=== PATIENT | female | born 1985 | race Caucasian/White ===

== ENCOUNTER 2018-02-02 22:00 | Emergency (ER) | payer SELFPAY ==
[2018-02-02 23:16] LABS: ABS Basophils 0 10^3/ul (0-0.2); ABS Eosinophils 0.1 10^3/ul (0-0.6); ABS Lymphocytes 2.1 10^3/ul (1.0-4.8); ABS Monocytes 0.4 10^3/ul (0-0.8); ABS Neutrophils 3.4 10^3/ul (1.5-7.7); ABS Nucleated RBC 0 10^3/ul; Eosinophil % 1.1 % (0-6); Hematocrit 36 % (35-47); Hemoglobin 12.1 g/dl (12.0-16.0); Lymphocyte % 34.1 % (25-47); Mean Corpuscular HGB Conc 34 g/dl (31-36); Mean Corpuscular Hemoglobin 30 pg (27-31); Mean Corpuscular Volume 89 fL (80-97); Mean Platelet Volume 7.5 um3 (7.4-10.4); Nucleated Red Blood Cells % 0; Platelet Count 223 10^3/ul (150-450); Red Blood Count 4.06 10^6/ul (4.00-5.40); Red Cell Distribution Width 13 % (10.5-15)
[2018-02-02 23:34] LABS: EGFR Non-African American 83.8 (>60)
[2018-02-03 00:57] LABS: Urine Appearance Cloudy; Urine Blood 3+ (Negative); Urine Color Straw; Urine Ketones Negative (Negative); Urine Protein Negative (Negative); Urine Red Blood Cell 3+(>10/hpf) (Absent); Urine Specific Gravity 1.005 (1.010-1.030); Urine Urobilinogen Negative (Negative); Urine White Blood Cell Trace(0-5/hpf) (Absent)
[2018-02-03 02:03] VITALS: BP 108/60
--- NOTE | 2018-02-03 07:41 | RAD ---
HISTORY: vaginal bleeding COMPARISONS: None TECHNIQUE: Multiple transverse and longitudinal ultrasound images were obtained of the pelvis using grayscale, color Doppler, and M-Mode Doppler imaging using the endovaginal transducer. FINDINGS: UTERUS: The uterus is normal in shape, size, contour, and echotexture. GESTATION: There is a single live intrauterine gestation. The crown-rump length measures 0.57 cm for a gestational age of 6 weeks, 3 days. The LORENA is September 26, 2018. cardiac motion is detected at a rate of 107 beats per minute. Gross movement is not identified. anatomy cannot be assessed secondary to early dates. The amniotic fluid is qualitatively normal. There are no retroplacental fluid collections. CUL-DE-SAC: There is no free fluid within the cul-de-sac. RIGHT OVARY: The right ovary measures 2.3 x 2 x 1.6 cm. LEFT OVARY: The left ovary measures 3.4 x 2 x 2.9 cm. There is a complex cyst of the left ovary measuring 2.2 cm in size, likely a corpus luteum. BLADDER: The bladder is not well visualized. IMPRESSION: 1. SINGLE LIVE INTRAUTERINE GESTATION AT 6 WEEKS, 3 DAYS BY CROWN-RUMP LENGTH. 2. PROBABLE CORPUS LUTEUM OF THE LEFT OVARY. RECOMMEND ATTENTION ON FOLLOW-UP IMAGING.
--- NOTE | 2018-02-20 10:48 | ED ---
Jair Hall Natalie, scribed for Peterson Joseph MD on 02/02/18 at 2305 . - HPI Summary HPI Summary: The patient is a 32 y/o F presenting to the ED c/o vaginal bleeding without pain starting an hour [employer]. The bleeding is described as bright red spotting. She states she is approximately 7 weeks with her LNMP on 11/27/17, although her has not yet been confirmed by US. She denies abd pain, burning, and dysuria. This is her first , . She has reported this episode to her STENCILER, who told her to come to the ED. - History of Current Complaint Chief Complaint: EDVaginalBleeding Stated Complaint: 7WKS /BLEEDING Time Seen by Provider: 02/02/18 22:39 Hx Obtained From: Patient Chief Complaint: Vaginal Bleeding Onset/Duration: Started Hours Ago, Still Present Severity: Mild Current Severity: Mild Pain Intensity: 0 Location of Pain: None Character: None Aggravating Factors: Nothing Alleviating Factors: Nothing Associated Signs and Symptoms: Positive: Negative - abd pain, Vaginal Bleeding or Discharge. Negative: Urinary Symptoms - Allergies/Home Medications Allergies/Adverse Reactions: Allergies Allergy/AdvReac Type Severity Reaction Status Date / Time No Known Allergies Allergy Verified 02/02/18 22:07 PMH/Surg Hx/FS Hx/Imm Hx Endocrine/Hematology History: Denies: Hx Diabetes Cardiovascular History: Denies: Hx Hypertension Infectious Disease History: No Infectious Disease History: Denies: Traveled Outside the [place] in Last 30 Days - Family History Known Family History: Negative: Cardiac Disease, Hypertension Review of Systems Negative: Abdominal Pain Genitourinary: Other - vaginal spotting with bright red blood Negative: burning, dysuria All Other Systems Reviewed And Are Negative: Yes Physical Exam - Summary Physical Exam Summary: Appearance: Well-appearing, no distress, Well-nourished Skin: Warm, color reflects adequate perfusion Head: Normal Head/Face inspection Eyes: Conjunctiva clear ENT: Normal inspection Neck: Supple, no nodes, no JVD. Respiratory: Lungs clear, Normal breath sounds, no respiratory distress Cardio: RRR, No murmur, pulses normal, brisk capillary refill Abdomen: soft, nontender, no guarding, no rebound Bowel sounds: present Musculoskeletal: Strength Intact/ ROM intact. No calf tenderness. No edema. Neuro: Alert, muscle tone normal, facial symmetry, speech normal, sensory/motor intact Psychological: Normal - Physical Exam Triage Information Reviewed: Yes Vital Signs Reviewed: Yes Diagnostics - Vital Signs Vital Signs Temp Pulse Resp BP Pulse Ox 02/02/18 22:04 97.9 F 69 16 128/65 100 - Laboratory Result Diagrams: 02/02/18 23:08 02/02/18 23:08 Lab Statement: Any lab studies that have been ordered have been reviewed, and results considered in the medical decision making process. - Ultrasound No standard instances Ultrasound Interpretation: No Acute Changes - Transvaginal US: Live IUP with estimated age 6 weeks 3 days without definite abnormalities. ED physician has reviewed this report. Ultrasound Interpretation Completed By: Radiologist Course/Dx - Diagnoses Provider Diagnoses: Threatened miscarriage in early Discharge - Sign-Out/Discharge Documenting (check all that apply): Discharge/Admit/Transfer - The pt will be discharged home under stable conditions. - Discharge Plan Condition: Stable Disposition: HOME Patient Education Materials: Threatened Miscarriage (ED) Referrals: Susan Blevins MD [Primary Care Provider] - Additional Instructions: Follow up with your STENCILER in 2-3 days. Return to the emergency department for any new or worsening symptoms. - Billing Disposition and Condition Condition: STABLE Disposition: Home The documentation as recorded by the [place]air [place] Natalie accurately reflects the service I personally performed and the decisions made by , Peterson Joseph MD.
== END 2018-02-03 02:01 | disposition home or self-care (01) ==
LOC: ED 22:00
DX: O20.0 Threatened abortion (principal); Z3A.01 Less than 8 weeks gestation of pregnancy
CPT/HCPCS: 36415; 76817; 80053; 81003; 81015; 84702; 85025; 86900; 86901; 87086; 99282

== ENCOUNTER 2019-02-21 13:58 | Inpatient (IN) | payer BC ==
[2019-02-21] MEDS ORDERED: Buffered Lidocaine 1% SYRIN* 1 ML/SYRINGE INTRADERM ONE (14:42)
[2019-02-21] MEDS ORDERED: Lactated Ringers 1000 ML Bag* 1,000 ML IV ONE (14:42)
--- NOTE | 2019-02-21 14:51 | HP ---
General Information - Reason for Visit at 40 0/7 weeks with spontaneous contractions - General Information Maternal Age: 33 Grav: 2 Para: 0 SAB: 1 IEA: 0 Estimated Due Date: 02/21/19 Determined By: LMP Maternal Blood Type and Rh: A Positive - Results this Serology/RPR Result: Non-Reactive Rubella Result: Non-Immune HBsAg Result: Negative HIV Result: Negative GBS Culture Result: Negative Past Medical History Delivery History Comment: No prior deliveries Pertinent Past Medical History: See Records Past Medical History Comment: Autoimmune thyroiditis Hypercholesterolemia Pertinent Past Surgical History: See Records Past Surgical History Comment: 2011 Pertinent Family History: See Records Family History Comment: Father: hypercholesterolemia Mother: Sjogren's syndrome, epilepsy, Dora's thyroiditis, Obesity - Antepartal Records Antepartal Records: Reviewed, Complicated by: - Rubella nonimmune status, LGSIL/+HPV pap, 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, 5p microdeletion Review of Systems Constitutional: Uncomfortable CV Complaint: No Respiratory: Shortness of Breath: No Gastrointestinal: No Nausea/Vomiting, Soft Stool Genitourinary: No Dysuria, No Bleeding, No Leaking Fluid Musculoskeletal: No Epigastric Pain, Back Pain, Contractions Neurological: No Headache, No Visual Changes Movement: Normal Exam Allergies/Adverse Reactions: Allergies No Known Allergies Allergy (Verified 02/21/19 14:27) B/P: 127/72, P: 72, R: 20, T: 98.7 - Measurements Height: 5 ft 3.5 in Weight: 148 lb Weight in lbs: [id number] Body Mass Index (BMI): 25.8 Pre- Weight: 121 lb 15.99 oz Weight Gained This : 26.00 lbs and 0.01 ozs - Exam Breast: Breast Exam Deferred Extremities: No Edema Heart: Normal Rhythm/Heart Sounds HEENT: No Significant Findings Lungs: Clear Bilaterally Reflexes: DTR 2+ Thyroid: No Thyromegaly - Abdominal Exam Abdomen Exam: Non-Tender, Fundal Height Consistent with Dates - Ultrasound/Biophysical Profile Ultrasound Status: Not Done Targeted Exam Findings See L&D Outpatient Visit Provider Note for Findings: Yes Estimated Weight: 8 lb by nora's Cervical Exam: 2cm Effacement: 90% Station: -2 Presenting Part: Vertex Membrane Status: Intact Bleeding/Discharge: None EFM Findings - External Monitor Findings Baseline Heart Rate: 130 External Monitor Findings: Accelerations Present, No Pattern of Variable or Late Decelerations, Variability Moderate, Baseline Stable Contractions: Regular, Moderate, Strong, 45-90 Seconds Contraction Frequency: 1.5-4 min Assessment/Plan - Assessment A: IUP at 40 0/7 weeks Category I FHR, no evidence of metabolic acidemia Early labor. GBS negative P: Admit to inpatient Discussed comfort measures - position changes, walking, tub, hydration Reassess in 3-4 hrs or sooner as indicated Anticipate SVB - Plan Plan: Admit - Anticipate Vaginal Delivery - Date/Time of Admission Date of Admission: 02/21/19 Time of Admission: 14:30
[2019-02-21] MEDS ORDERED: Lactated Ringers 1000 ML Bag* 1,000 ML IV SCH ×2 (15:00→23:45)
--- NOTE | 2019-02-21 18:04 | PN ---
Progress Note - Progress Note Date of Service: 02/21/19 Note: S: Feeling more and more uncomfortable, reports she is unable to rest. Tried the tub for awhile as well as ball. at bedside for support O: B/P: 128/78, P: 65, R: 20, T: 98.7 FHR: baseline 130, moderate variability, +accelerations, no decelerations UCs: q 2-4.5 min, moderate to strong VE: 4/100/-2, bulging bag of water. A: IUP at 40 0/7 weeks Category I FHR, no evidence of metabolic acidemia Early active labor P: Discussed no way to determine how much longer it will be. Luisa is starting to feel fatigued and wondering what her options are for pain. Elects to try nitrous oxide at this time. Education given re: how to use, she must be the one to hold mask, and no sharing nitrous with others. Reassess in 2-4 hrs or sooner as indicated. Anticipate SVB
--- NOTE | 2019-02-21 19:46 | PN ---
Progress Note - Progress Note Date of Service: 02/21/19 Note: S: Luisa requests cervical exam, lots of questions about how to decide whether to increase pain medications or stick it out with the nitrous O: B/P: 129/72, P: 72, R: 18, T: 98.8 FHR: 135/140 by intermittent auscultation. no decreases noted UCs: q2-4 min, moderate to strong to palpation VE: 8/100/-2, bulging bag of water A: IUP at 40 0/7 weeks Doubt metabolic acidemia Active labor/transition P: Discussed second stage, when to call the nurse (strong urge to bear down even between contractions, ROM, etc). Reassess in 1-2 hrs or sooner as indicated Anticipate SVB
[2019-02-21] MEDS ORDERED: Dibucaine 1% 28.35 GM TUBE PR PRN (23:05)
[2019-02-21] MEDS ORDERED: Measles, Mumps,Rubella VACC* 0.5 ML/VIAL SUBCUT ONE (23:05)
[2019-02-21] MEDS ORDERED: Glycerin ADULT SUPP PR PRN (23:05)
--- NOTE | 2019-02-21 23:12 | PROCNOTE ---
[facility] OB: Delivery Note - Delivery A Date of : 02/21/19 Time of : 22:45 [place] Sex: Male Score 1 Minute: 9 Score 5 Minutes: 9 Gestational Age in Weeks and Days at Delivery: 40 Weeks and 0 Days Delivery Method: Spontaneous Vaginal Labor: Spontaneous Did Patient attempt ?: N/A, No Previous Amniotic Fluid: Clear Estimated Blood Loss: 350 Anesthesia/Analgesia: Nitrous-Labor Delivered By: Mckayla Kline - Nursery Level of Nursery: Regular/Bedside - Perineum Perineal Injury: Abrasion Only - Not Repaired Perineal Injury Comment: Left labial Perineal Repair: None - Events Delivery Events of Note: None Apply - Additional Delivery Notes Additional Delivery Notes: in spontaneous labor admitted and received nitrous oxide per request with good relief. SROM to clear fluid at 2035, progressed to complete and began pushing at 2055 with moderate maternal effort. crowned slowly OA to OA at 2245, shoulders delivered with strong maternal push and McRobert's position. with vigorous cry, HR > 110, delivered to maternal abdomen. Three vessel cord was doubly clamped and cut by FOB once pulsations ceased. Intact placenta at 2250, fundus firm with massage. IM pitocin given for brisk maternal bleeding. Vulva and perineum inspected, small left labial laceration noted, no repair necessary. IHS=016. initiated, mother and infant in stable condition at time of note.
[2019-02-21] MEDS: Ibuprofen TAB* 600 MG PO PRN (23:28)
[2019-02-22] MEDS: Witch Hazel PAD* JAR TOPICAL PRN ×2 (00:34→15:16)
[2019-02-22] MEDS ORDERED: OXYTOCIN* 10 UNITS/ML 1 ML VIAL ONE (01:23)
[2019-02-22] MEDS: Acetaminophen TAB* 325 MG PO PRN ×2 (02:56→18:03)
[2019-02-22] MEDS: Ibuprofen TAB* 600 MG PO PRN ×3 (06:12→22:48)
[2019-02-22 06:16] LABS: ABS Lymphocytes 1.2 10^3/ul (1.0-4.8); ABS Monocytes 0.7 10^3/ul (0-0.8); ABS Neutrophils 13.1 10^3/ul (1.5-7.7); Hematocrit 33 % (35-47); Hemoglobin 11.4 g/dL (12.0-16.0); Lymphocyte % 7.9 %; Mean Corpuscular HGB Conc 34 g/dL (31-36); Mean Corpuscular Hemoglobin 31 pg (27-31); Mean Corpuscular Volume 89 fL (80-97); Mean Platelet Volume 10.3 fL (7.4-10.4); Platelet Count 174 10^3/uL (150-450); Red Blood Count 3.73 10^6 /uL (3.70-4.87); Red Cell Distribution Width 14 % (10-15)
[2019-02-22] MEDS ORDERED: Ferrous Gluconate TAB* 324 MG TAB PO SCH (09:00)
[2019-02-22] MEDS: Simethicone TAB* 80 MG TAB.CHEW PO SCH ×5 (09:36→21:05)
[2019-02-22] MEDS: Docusate CAP* 100 MG PO SCH ×4 (09:36→21:04)
[2019-02-23] MEDS: Ibuprofen TAB* 600 MG PO PRN (06:06)
[2019-02-23] MEDS: Simethicone TAB* 80 MG TAB.CHEW PO SCH (08:33)
[2019-02-23] MEDS: Docusate CAP* 100 MG PO SCH (08:33)
[2019-02-23 08:54] VITALS: BP 111/75
== END 2019-02-23 13:50 | disposition home or self-care (01) | DRG 560 ==
LOC: MCHOBOUT 13:58 → MCHOB 14:03
PROVIDERS: ADMIT Midwife; ATTEND Midwife
PROC: 10E0XZZ Delivery of Products of Conception, External Approach (ICD-10-PCS; principal; 2019-02-21)
DX: O99.284 Endocrine, nutritional and metabolic diseases complicating childbirth (principal); Z37.0 Single live birth; E03.9 Hypothyroidism, unspecified; O70.0 First degree perineal laceration during delivery; Z3A.40 40 weeks gestation of pregnancy
CPT/HCPCS: 36415; 85025; A9270-GY; J2590